=== PATIENT | female | born 1945 | race Caucasian/White ===

== ENCOUNTER 2017-03-30 13:26 | Emergency (ER) | payer OTHER ==
[~2017-03-30] VITALS: Ht 165.1 cm; Wt 72.6 kg
[~2017-03-30 13:26] MED LIST: ALBUTEROL INH; AZITHROMYCIN 2250 MG PO; PROVENTIL HFA6.7 G1 INH; TESSALON PERLE100 MG PO
[2017-03-30] MEDS ORDERED: [UNRECOGNIZED DRUG - OTHER] PO (13:37)
[2017-03-30 14:15] LABS: URINE BILIRUBIN NEGATIVE (Negative); URINE BLOOD NEGATIVE (Negative); URINE CLARITY CLEAR; URINE COLOR YELLOW; URINE GLUCOSE-RANDOM NEGATIVE (Negative); URINE KETONES NEGATIVE (Negative); URINE LEUKOCYTES-REFLEX NEGATIVE (Negative); URINE NITRITE-REFLEX NEGATIVE (Negative); URINE PROTEIN NEGATIVE (Negative); URINE UROBILINOGEN 0.2 E.U./dl (0.2-1.0)
[2017-03-30 14:16] LABS: ABSOLUTE BASOPHILS 0.1 thou/uL (0.0-0.2); ABSOLUTE EOSINOPHILS 0.1 thou/uL (0.0-0.7); ABSOLUTE LYMPHOCYTES 2.5 thou/uL (0.8-5.3); ABSOLUTE MONOCYTES 0.3 thou/uL (0.0-1.2); ABSOLUTE NEUTROPHILS 2.7 thou/uL (1.6-8.1); EOSINOPHILS 2.6 %; HEMOGLOBIN 13.7 gm/dL (12.0-15.0); LYMPHOCYTES 43.9 %; MCH 31.3 pg (26.0-34.0); MCHC 34.4 g/dL (28.0-37.0); MONOCYTES 5.2 %; MPV 7.9 fl. (7.2-11.1); NUCLEATED RBCS 0 /100WBC; PLATELET COUNT* 273 thou/uL (150-400); POLYS 47.3 %; RDW-CV 12.6 % (10.5-14.5); WBC 5.7 thou/uL (4.0-11.0)
[2017-03-30 14:26] LABS: CREATININE 0.9 mg/dL (0.6-1.3); POTASSIUM 3.9 mmol/L (3.5-5.1)
[2017-03-30 14:31] LABS: ALBUMIN 3.8 g/dL (3.4-5.0); TOTAL BILIRUBIN 0.3 mg/dL (<0.1-1.0); TOTAL PROTEIN 7.9 g/dL (6.4-8.2)
--- NOTE | 2017-03-30 15:02 | EKG ---
[place] [address] ELECTROCARDIOGRAM REPORT Name: SAMIRA BOSS Room: [facility]#: [id number] Admission: 03/30/17 Attend Phys: Discharge: Date of : 47 Report #: [id number] THIS REPORT FOR: //name// [facility] ED Test Date: 2017-03-30 Test Time: 14:16:36 Pat Name: SAMIRA BOSS Department: Room: Gender: F Staff Electrical Engineer: Agnes REYES : 1945 Requested By: George Reynolds Order Number: [id number] MD: Wale Jackson Measurements Intervals [place] Rate: 58 P: 59 NV: 176 QRS: 32 QRSD: 88 T: 40 QT: 425 QTc: 418 Interpretive Statements Sinus rhythm Baseline wander in lead(s) V1 No previous ECG available for comparison Electronically Signed On 03-30-2017 15:02:42 LAW REPORTER by Wale Jackson [email or web address] <ELECTRONICALLY SIGNED> By: Wale Jackson MD, [facility] 03/30/17 1502 1416 1416 Wale Jackson MD, FACC /EPI
[2017-03-30 15:28] VITALS: BP 149/65
== END 2017-03-30 15:29 | disposition home or self-care (01) ==
LOC: M.ERS 13:26
PROVIDERS: Physician Assistant
DX: R51 Headache (principal); R44.1 Visual hallucinations; Z90.49 Acquired absence of other specified parts of digestive tract; Z88.5 Allergy status to narcotic agent; Z88.1 Allergy status to other antibiotic agents; Z88.0 Allergy status to penicillin; Z88.2 Allergy status to sulfonamides

== ENCOUNTER 2020-09-10 22:15 | Emergency (ER) | payer MEDICARE ==
[~2020-09-10] VITALS: Ht 167.6 cm; Wt 72.1 kg
[~2020-09-10 22:15] MED LIST changes: +[UNRECOGNIZED DRUG - OTHER] PO
[2020-09-10] MEDS ORDERED: FLONASE 0.05%50 MCG NARES (22:27)
[2020-09-10] MEDS ORDERED: VITAMIN D31 ML (22:27)
[2020-09-11 01:35] VITALS: BP 116/46
== END 2020-09-11 01:36 | disposition home or self-care (01) ==
LOC: M.ERS 22:15
DX: M79.651 Pain in right thigh (principal); M54.5 Low back pain; Z88.5 Allergy status to narcotic agent; Z88.1 Allergy status to other antibiotic agents; Z88.0 Allergy status to penicillin; Z88.2 Allergy status to sulfonamides; Z90.49 Acquired absence of other specified parts of digestive tract; Z98.890 Other specified postprocedural states